=== PATIENT | female | born 1930 | race Caucasian/White ===

== ENCOUNTER 2016-12-21 05:34 | Day surgery (SDC) | payer MEDICARE, OTHER ==
--- NOTE | 2016-12-20 10:31 | NUR ---
FALL PATIENT REPORTS THAT SHE ROLLED OUT OF BED AND HIT HER BED STAND, STATES SHE MADE A MISTAKE AND ROLLED TOO FAR. HIT FACE ON NIGHT STAND.
[~2016-12-21] VITALS: Ht 160 cm; Wt 85.3 kg
[2016-12-21] VITALS (28 sets, daily range): BP systolic 121–190; BP diastolic 67–98; PULSE 70–92; RESP 12–20; TEMP 97.4–99.6; O2SAT 80–97; Ht 160 cm; Wt 85.3 kg
[~2016-12-21 05:34] MED LIST: ACET-2321 PO; ESCI10TA44 PO; TOLT4CAP PO
--- OUTSIDE RECORDS SUMMARY | 2016-12-21 05:39 | XMS REPORT | Continuity of Care Document ---
Author Author [facility] Organization [facility] Address Unknown Phone Unavailable Support Name Relationship Address Phone YARA RAMÍREZ MD Caregiver [address] [place] [address] Unavailable YARA RAMÍREZ MD Caregiver [address] [place] [address] Unavailable STACIE HOUGH MD Caregiver [address] [place] [address] [place] [address] Unavailable JIM ORTIZ MD Caregiver [address] [place] [address] Unavailable PIETROCRISTOPHER DIASCHING Gore Next Of Kin [address] [place] [address] Insurance Providers Guarantor PietroMarsha L Address [address] [place] [address] Email DENIED/NO TO PT PORT Payer [facility] [place] Medicare [facility] Policy Number [id number] Subscriber's Name Benja Westbrook Relationship 01 Spouse Effective Date 01 Payer Medicare Policy Number [id number] Subscriber's Name Marsha Westbrook Relationship 18 Self Effective Date 97 Advance Directives Directive Response Recorded Date/Time Advanced Directives Type None 06/27/16 9:05am Ordered Resuscitation Status Full Code 06/27/16 1:05pm Resuscitation Documents on File No 06/27/16 1:13pm DPOA for Healthcare Only Y BENJA WESTBROOK, 06/27/16 1:13pm Living Will Yes 06/27/16 1:13pm Chief Complaint and Reason for Visit Chief Complaint PANCREATITIS Reason for Visit Peptic ulcer disease Transaminitis Problems Active Problems Medical Problem Onset Date Status Anemia Unknown Back pain Unknown Acute Constipation by delayed colonic transit Unknown Acute Dental infection Unknown Acute Depression Unknown Chronic Hyperbilirubinemia Unknown Acute Hyperlipidemia Unknown Chronic Hypokalemia Unknown Acute Incontinence of urine Unknown Chronic Migraine with visual aura Unknown Obesity Unknown Chronic Peptic ulcer disease Unknown Chronic Transaminitis Unknown Acute UTI (urinary tract infection) Unknown Chronic Vertigo Unknown Surgical Problem Onset Date Status H/O hand surgery Unknown History of appendectomy Unknown Status post hip replacement Unknown Past Problems Medical Problem Onset Date Headache Unknown Pancreatitis Unknown Vertigo Unknown Medications Current Home Medications Medication Dose Units Route Directions Days Qty Instructions Start Date Escitalopram Oxalate (Lexapro) 10 Mg Tablet 10 Mg Oral Daily 20/07 Meclizine Hcl 25 Mg Tablet 25-50 Mg Oral Four Times Daily as needed for Dizziness 06/27/16 Omeprazole 20 Mg Capsule.dr 20 Mg Oral Before Breakfast 30 Days 30 Capsule 06/30/16 Polyvinyl Alcohol/Povidone/Pf (Refresh Classic Eye Drops) 1 Each Droperette 1 Drop Both Eyes Daily as needed for Dry Eyes 06/27/16 Tolterodine Tartrate (Detrol La) 4 Mg Cap.er.24h 4 Mg Oral Daily 06/27/16 Past Home Medications Medication Directions Ordered Status Acetaminophen 500 Mg Tablet, 500 Mg Oral Every 4 Hours as needed for Pain 05/11 Discontinued Tolterodine Tartrate (Detrol) 1 Mg Tablet, 1 Mg Oral Daily 02/04/09 Discontinued Social History Social History Problem Response Recorded Date/Time Onset Date Status Reason for Hospitalization pancreatitis, transaminitis 06/30/2016 12:04pm Not Applicable Not Applicable Chewing Tobacco Status No 06/27/2016 10:00am Not Applicable Not Applicable Hx Substance Use No 06/27/2016 10:00am Not Applicable Not Applicable Hx Alcohol Use No 06/27/2016 10:00am Not Applicable Not Applicable Has the pt used tobacco in the last 12 months No 06/27/2016 1:17pm Not Applicable Not Applicable Tobacco Usage none 07/02/2015 6:53pm Not Applicable Not Applicable Query Response Start Date Stop Date Smoking Status Former smoker Hospital Discharge Instructions Instructions: Care Instructions: I was in the hospital because (patient own words): HAVING PAIN IN MY UPPER RIGHT ABDOMEN Discharge Diet: bland diet Discharge Activity: Normal activity as tolerated Follow Up Appointments: Follow-up appointment with Dr. Harvey- 07/14/16 at 2 p.m. Pending Lab / Results: No Pending Lab Patient Instructions: Continue with Prilosec 20 milligrams daily No other new home medications at time of discharge Follow-up with Dr. Harvey as scheduled. If symptoms return or worsen, contact Dr. Harvey, sooner Maintain a bland diet. Wound/Incision Care: N/A Durable Medical Equipment: None Pain Management/Treatment: none Expected Signs/Symptoms: Overall symptoms should continue to improve Notify Physician If: Severe abdominal pain, nausea, fevers, worsening symptoms During Business Hours:: Please call the physician's office at [phone] After Business Hours:: Please call [phone] and have the grid casting machine operator helper page the physician. Condition at time of discharge: Good Plan of Care Discharge Date 06/30/16 12:41pm Disposition 01 DISCHARGED HOME, SELF-CARE Instructions/Education Provided DI for Pancreatitis Prescriptions See Medication Section Care Plan and Goals See Discharge Instructions Section Functional Status Query Response Date Recorded Mobility Status Ambulatory June 30, 2016 12:04pm Assistive Devices None June 30, 2016 12:04pm Activity Limitations Pain June 30, 2016 12:04pm Feeding Ability Independent June 30, 2016 12:04pm Toileting Ability Independent June 30, 2016 12:04pm Grooming Ability Independent June 30, 2016 12:04pm Dressing Ability Independent June 30, 2016 12:04pm Driving Ability Independent June 30, 2016 12:04pm Housework Ability Independent June 30, 2016 12:04pm Meal Preparation Ability Independent June 30, 2016 12:04pm Stair Climbing Ability Independent June 30, 2016 12:04pm Ability to complete ADL's impeded by No change June 30, 2016 12:04pm Cognitive/Perceptual Impairments Impaired vision June 30, 2016 12:04pm Visual Assistive Devices Glasses With patient June 27, 2016 1:25pm Preferred Method of Learning Demonstration Hands on June 27, 2016 1:25pm Allergies, Adverse Reactions, Alerts Allergen Type Severity Reaction Status Last Updated Sulfa (Sulfonamide Antibiotics) Allergy Intermediate RASH Active 06/27/16 [id number] Reductase Inhibitor Adverse Reaction Intermediate PAINS IN LEGS Active 04/02/16 Niacin Allergy Intermediate RASH Active 04/02/16 Ibuprofen Adverse Reaction Intermediate SEVERE STOMACH PAINS Active Tetracycline Adverse Reaction Mild VAG INFECTIONS Active 06/27/16 Erythromycin base Allergy Unknown Active 04/02/16 Immunizations Immunization Event Date Type Not Given Reason Dose Number Lot Number Collection Coordinator VIS Given Influenza, high dose seasonal 06/28/16 Administered 1 [id number] Sanofi Pasteur 05/02/15 Pneumococcal conjugate PCV 13 06/29/16 Administered 1 [id number] Pfizer Query Response on File Recorded Date/Time Hx Influenza Vaccination N fall 201406/27/16 1:17pm Hx Pneumococcal Vaccination Y 2006 06/27/16 1:17pm Hx Influenza Vaccination N fall 201406/27/16 1:17pm Hx Tetanus Diptheria Y REPORTS CURRENT 07/01/15 11:07am Influenza Vaccine Hx 06-28-16 06/28/16 12:39pm Vital Signs Acute Vital Signs Vital Response Date/Time Temperature (Fahrenheit) 96.7 deg F (96.8 - 99.1) 06/30/2016 12:04pm Temperature (Calculated Celsius) 35.18448 degrees C (36.0 - 37.3) 06/30/2016 12:04pm Pulse Rate (adult) 92 bpm (60 - 100) 06/30/2016 12:04pm Respiratory Rate 18 breaths/min (10 - 20) 06/30/2016 12:04pm O2 Sat by Pulse Oximetry 94 % (90 - 100) 06/30/2016 12:04pm Oxygen Delivery Method Room Air 06/29/2016 7:45pm Oxygen Delivery Method Room Air 06/30/2016 12:04pm Oxygen Flow Rate 0.50 L/min 06/28/2016 8:31am Blood Pressure 144/91 mm Hg 06/30/2016 12:04pm Blood Pressure Source Automatic Cuff 06/30/2016 12:04pm Height (Feet) 5 feet 06/29/2016 5:42pm Height (Inches) 3.00 inches 06/29/2016 5:42pm Weight (Kilograms) 87.700 kg 06/30/2016 8:00am Body Mass Index (BMI) 33.0 06/27/2016 1:08pm Results Laboratory Results Test Name Result Units Flags Reference Collection Date/Time Result Date/ Time Comments White Blood Count 5.9 T/MM3 4.5-11.0 06/30/2016 4:12am 06/30/2016 5: 18am Red Blood Count 3.69 M/MM3 L 4.00-5.20 06/30/2016 4:12am 06/30/2016 5: 18am Hemoglobin 10.6 GM/DL L 12-16 06/30/2016 4:12am 06/30/2016 5:18am Hematocrit 33.5 % L 36-46 06/30/2016 4:12am 06/30/2016 5:18am Mean Corpuscular Volume 90.8 UM3 80-100 06/30/2016 4:1206/30/2016 5: 18am Mean Corpuscular Hemoglobin 28.7 UUG 26-34 06/30/2016 4:122015 5:18am Mean Corpuscular Hemoglobin Concent 31.6 GM/DL 31-37 06/30/2016 4:1206/30/2016 5:18am RDW Standard Deviation 44.0 FL 36.9-50.2 06/30/2016 4:1206/30/2016 5 :18am Platelet Count 180 T/MM3 130-400 06/30/2016 4:1206/30/2016 5:18am Mean Platelet Volume 11.0 UM3 9.4-12.4 06/30/2016 4:1206/30/2016 5: 18am Neutrophils (%) (Auto) 66.0 % 33-66 06/30/2016 4:06/30/2016 5: 18am Lymphocytes (%) (Auto) 19.9 % L 23-45 06/30/2016 4:1206/30/2016 5: 18am Monocytes (%) (Auto) 9.7 % H 0-9.0 06/30/2016 4:1206/30/2016 5:18am Eosinophils (%) (Auto) 3.9 % 0-4 06/30/2016 4:1206/30/2016 5:18am Basophils (%) (Auto) 0.3 % 0-2 06/30/2016 4:1206/30/2016 5:18am Immature Granulocyte % (Auto) 0.2 % 0.0-0.5 06/30/2016 4:122015 5:18am Absolute Neutrophils (auto) 3.9 T/MM3 1.8-7.7 06/30/2016 4:122015 5:18am Absolute Lymphocytes (auto) 1.2 T/MM3 1-4.8 06/30/2016 4:122015 5:18am Absolute Monocytes (auto) 0.6 T/MM3 0-0.8 06/30/2016 4:1206/30/2016 5:18am Absolute Eosinophils (auto) 0.2 T/MM3 0-0.5 06/30/2016 4:122015 5:18am Absolute Basophils (auto) 0.0 T/MM3 0-0.2 06/30/2016 4:1206/30/2016 5:18am Absolute Immature Granulocyte (auto 0.01 T/MM3 0.00-0.03 06/30/2016 4: 12am 06/30/2016 5:18am Icterus Index < 2 0-7 06/30/2016 4:1206/30/2016 5:31am Chemistry Specimen Hemolysis < 15 0-25 06/30/2016 4:1206/30/2016 5 :31am 0-25: Specimen Exhibited No Hemolysis. Turbidity < 20 0-20 06/30/2016 4:1206/30/2016 5:31am Sodium Level 145 MEQ/L H 134-144 06/30/2016 4:1206/30/2016 5:31am Potassium Level 3.3 MEQ/L L 3.6-5 06/30/2016 4:1206/30/2016 5:31am Chloride Level 109 MEQ/L H 98-107 06/30/2016 4:1206/30/2016 5:31am Carbon Dioxide Level 26 MEQ/L 22-30 06/30/2016 4:1206/30/2016 5: 31am Anion Gap 10 MEQ/L 5-15 06/30/2016 4:12am 06/30/2016 5:31am Blood Urea Nitrogen 6.0 MG/DL L 7-17 06/30/2016 4:1206/30/2016 5: 31am Creatinine 0.7 MG/DL 0.7-1.2 06/30/2016 4:1206/30/2016 5:31am BUN/Creatinine Ratio 9 RATIO 6-26 06/30/2016 4:1206/30/2016 5:31am Glomerular Filtration Rate Calc 80 06/30/2016 4:1206/30/2016 5: 31am Glucose Level 103 MG/DL 65-110 06/30/2016 4:12am 06/30/2016 5:31am Calculated Osmolality 277 MOSM/KG 261-280 06/30/2016 4:1206/30/2016 5:31am Calcium Level 8.8 MG/DL 8.4-10.2 06/30/2016 4:12am 06/30/2016 5:31am Total Bilirubin 1.70 MG/DL H 0.20-1.30 06/30/2016 4:12am 06/30/2016 5: 31am Unconjugated Bilirubin 1.60 MG/DL H 0.00-1.10 06/28/2016 4:34am 2015 4:52pm Conjugated Bilirubin 0.50 MG/DL H 0.00-0.30 06/28/2016 4:34am 2015 4:52pm Alkaline Phosphatase 129 U/L H 38-126 06/30/2016 4:12am 06/30/2016 5: 31am Total Protein 6.0 G/DL L 6.3-8.2 06/30/2016 4:1206/30/2016 5:31am Albumin 3.4 G/DL L 3.5-5.0 06/30/2016 4:1206/30/2016 5:31am Globulin 2.6 G/DL 2.4-3.6 06/30/2016 4:1206/30/2016 5:31am Albumin/Globulin Ratio 1.3 RATIO 1.1-2.2 06/30/2016 4:12am 06/30/2016 5 :31am Aspartate Amino Transf (AST/SGOT) 67 U/L D H 14-36 06/30/2016 4:12am 01/2016 5:33am Alanine Aminotransferase (ALT/SGPT) 151 U/L H 9-52 06/30/2016 4:12am 01/2016 5:31am Cholesterol Level 182 MG/DL 132-199 06/28/2016 4:34am 06/29/2016 1: 57am Triglycerides Level 103 MG/DL 35-135 06/28/2016 4:34am 06/29/2016 1: 57am HDL Cholesterol Direct 44 MG/DL 40-60 06/28/2016 4:34am 06/29/2016 1: 57am LDL Cholesterol, Calculated 117.4 66-159 06/28/2016 4:34am 2015 1:57am VLDL Cholesterol 20.6 MG/DL 0-28 06/28/2016 4:34am 06/29/2016 1:57am Cholesterol/HDL Ratio 4.1 RATIO H 0-4.0 06/28/2016 4:34am 06/29/2016 1: 57am Lipase 114 U/L D 23-300 06/30/2016 4:12am 06/30/2016 5:33am Magnesium Level 1.9 MG/DL 1.6-2.3 06/28/2016 4:34am 06/28/2016 5:02am Urine Collection Type CLEANCATCH-MIDSTREAM 06/27/2016 10:09am 06/27 10:15am Urine Color YELLOW YELLOW 06/27/2016 10:09am 06/27/2016 10:15am Urine Turbidity SL CLOUDY CLEAR 06/27/2016 10:09am 06/27/2016 10: 15am Urine Specific [place] 1.015 1.015-1.025 06/27/2016 10:09am 2015 10:15am Urine pH 6.0 5.0-8.0 06/27/2016 10:09am 06/27/2016 10:15am Urine Leukocyte Esterase NEGATIVE NEGATIVE 06/27/2016 10:09am 2015 10:15am Urine Nitrite NEGATIVE NEGATIVE 06/27/2016 10:09am 06/27/2016 10: 15am Urine Protein NEGATIVE NEGATIVE 06/27/2016 10:09am 06/27/2016 10: 15am Urine Glucose (UA) NEGATIVE NEGATIVE 06/27/2016 10:09am 06/27/2016 10 :15am Urine Ketones NEGATIVE NEGATIVE 06/27/2016 10:09am 06/27/2016 10: 15am Urine Urobilinogen 1.0 EU/DL NORMAL 06/27/2016 10:09am 06/27/2016 10: 15am Urine Bilirubin 1+ A NEGATIVE 06/27/2016 10:09am 06/27/2016 10:15am Urine Blood TRACE-INTACT A NEGATIVE 06/27/2016 10:09am 06/27/2016 10: 15am Urinalysis Comment MICROSCOPIC NOT IND. 06/27/2016 10:09am 2015 10:15am Glucometer 124 mg/dL H 65-110 06/29/2016 4:50pm 06/29/2016 4:54pm Name: MARSHA WESTBROOK Unit #: [id number] : 1930 Sex: F Admit Date: 06/27/16 Loc / Svc: MED Discharge Date: DIAGNOSTIC IMAGING REPORT Report #: [id number] [facility] AMOR [place] Indication: ITS.REASON: pancreatitis, CT suggestive of GB involvement PROCEDURE: US GALLBLADDER: Encounter: Initial Comparison: None Technique: Grayscale and color Doppler sonographic imaging of the right upper quadrant of the abdomen was performed. Findings: Small hyperechoic region near the hepatic margin of the gallbladder which appeared to have represented a probable pericholecystic flash hemangioma. The liver texture appears somewhat heterogeneous but no focal mass otherwise apparent. No intrahepatic ductal dilatation. Alternatively, this focal hyperechoic pericholecystic region of about 1.5 cm could represent an area of focal gallbladder wall thickening. The remainder of the wall itself is thickened diffusely measuring 3.9 mm. No gallstones or sludge apparent. No tenderness with transducer pressure. Both the intra and extrahepatic biliary system are of normal caliber with the common duct measuring 4.3 mm in dimension. Visualized portions of the head and body of the pancreas are unremarkable. The right kidney is present without collecting system dilatation. The right kidney measures 10.0 cm in length. Impression: 1. Hyperechoic pericholecystic apparent hepatic lesion which appears to be a portion of the hepatic parenchyma and would be consistent with a flash hemangioma when viewed in light of CT findings. Focal gallbladder wall thickening extending to the hepatic parenchyma would seem less likely. 2. Diffuse gallbladder wall thickening. No pericholecystic fluid 3. No gallstones or biliary duct dilatation. 4. Negative for ascites. . Procedures Procedure Status Date Provider(s) ROUTINE VENIPUNCTURE Completed 04/02/16 CT HEAD/BRAIN W/O DYE Completed 04/02/16 CT NECK SPINE W/O DYE Completed 04/02/16 METABOLIC PANEL TOTAL CA Completed 04/02/16 URINALYSIS AUTO W/O SCOPE Completed 04/02/16 COMPLETE CBC W/AUTO DIFF WBC Completed 04/02/16 ELECTROCARDIOGRAM TRACING Completed 04/02/16 HYDRATE IV INFUSION ADD-ON Completed 04/02/16 THER/PROPH/DIAG INJ IV PUSH Completed 04/02/16 EMERGENCY DEPT VISIT Completed 04/02/16 [id number] ITEM OR SERVICE Completed 04/02/16 610118"INJECTION, KETOROLAC TROMETHAMINE, PER 15 MG" Completed 04/02/16 218485"INFUSION, NORMAL SALINE SOLUTION , 1000 CC" Completed 04/02/16 Encounters Encounter Location Arrival/Admit Date Discharge/Depart Date Attending Provider Discharged Inpatient [facility] 06/27/16 11:45am 06/30/16 12: 41pm YARA RAMÍREZ MD Departed Emergency Room [facility] 04/02/16 6:28pm 04/02/16 9: 50pm JEREMÍAS HARRINGTON MD Recent Diagnosis Peptic ulcer disease Transaminitis
--- OUTSIDE RECORDS SUMMARY | 2016-12-21 05:39 | XMS REPORT | Continuity of Care Document ---
Author Author [facility] Organization [facility] Address Unknown Phone Unavailable Support Name Relationship Address Phone JEREMÍAS HARRINGTON MD Caregiver [facility] [address] [place] [address] Unavailable JIM ORTIZ MD Caregiver [facility] [address] [place] [address] BENJA CONDON Next Of Kin [address] [place] [address] Insurance Providers Payer Name Policy Number Subscriber Name Relationship Medicare [id number] Marsha Condon 20 Self Medicare Supp Wps [id number] Benja Condon 01 Spouse Advance Directives Directive Response Recorded Date/Time Advanced Directives Type None 06/07/14 2:20am Problems Medical Problems Problem Onset Date Status Dental infection Unknown Active Vertigo Unknown Active Medications Medication Dose Route Sig Days/Qty Instructions Order Date Discontinued Date Status Tolterodine Tartrate 1 Mg PO DAILY 02/04/09 05/04/10 Discontinued Escitalopram Oxalate 10 Mg PO BEDTIME 05/20/10 Active Tolterodine Tartrate Unknown Dose 06/07/14 Active Meclizine HCl 50 Mg PO FOUR TIMES DAILY PRN DIZZINESS 30 Qty 06/07/14 Active Ondansetron 4 Mg PO Q6H/0300,0900,1500,2100 For NAUSEA &/OR VOMITING 10 Qty Oral disintegrating tablet 06/07/14 Active Social History Social History Problem Response Recorded Date/Time Smoking Status Former smoker 06/07/2014 2:20am When did patient START smoking? AGE 20 06/07/2014 2:20am When did patient STOP smoking? AGE 22 06/07/2014 2:20am Hx Substance Use No 06/07/2014 2:20am Hx Alcohol Use No 06/07/2014 2:20am Hospital Discharge Instructions No hospital discharge instructions. Plan of Care No plan of care. Functional Status Query Response Date Recorded Physical Hygiene Self June 07, 2014 2:20am Disabilities None June 07, 2014 2:20am Devices Used None June 07, 2014 2:20am Dressing Self June 07, 2014 2:20am Ambulation Self June 07, 2014 2:20am Diet Self June 07, 2014 2:20am Mental Status Alert June 07, 2014 4:10am Disabilities None June 07, 2014 2:20am Devices Used None June 07, 2014 2:20am Physical Hygiene Self June 07, 2014 2:20am Dressing Self June 07, 2014 2:20am Ambulation Self June 07, 2014 2:20am Diet Self June 07, 2014 2:20am Allergies, Adverse Reactions, Alerts Allergen Type Severity Reaction Status Last Updated Sulfa (Sulfonamide Antibiotics) Allergy Intermediate RASH Active 02/22/09 Ykniwop-Ish-Wkp Reductase Inhibitor Adverse Reaction Intermediate PAINS IN LEGS Active 05/04/10 Niacin Allergy Intermediate RASH Active 05/04/10 Ibuprofen Adverse Reaction Intermediate SEVERE STOMACH PAINS Active Tetracycline Adverse Reaction Mild VAG INFECTIONS Active 05/04/10 Erythromycin base Allergy Unknown Active 02/22/09 Immunizations Name Given Type Hx Influenza Vaccination Y FALL 2012 Historical Hx Pneumococcal Vaccination Y 2005 Historical Hx Influenza Vaccination Y FALL 2012 Historical Hx Tetanus Diptheria Y REPORTS CURRENT Historical Vital Signs Acute Vital Signs Vital Response Date/Time Temperature (Fahrenheit) 96.7 deg F (96.8 - 99.1) Temperature (Calculated Celsius) 35.56812 degrees C (36.0 - 37.3) Pulse Rate (adult) 78 bpm (60 - 100) Respiratory Rate 24 breaths/min (10 - 20) O2 Sat by Pulse Oximetry 96 % (90 - 100) Blood Pressure 168/71 mm Hg Results Test Source Date Result Interp. Ref. Range Comments Alanine Aminotransferase (ALT/SGPT) June 07, 2014 3:00am 24 U/L N 9 -52 Albumin June 07, 2014 3:00am 4.4 G/DL N 3.5-5.0 Albumin/Globulin Ratio June 07, 2014 3:00am 1.8 RATIO N 1.1-2.2 Alkaline Phosphatase June 07, 2014 3:00am 72 U/L N 38-126 Anion Gap June 07, 2014 3:00am 13 MEQ/L N 5-15 Aspartate Amino Transf (AST/SGOT) June 07, 2014 3:00am 17 U/L N 14- 36 BUN/Creatinine Ratio June 07, 2014 3:00am 18 RATIO N 6-26 Basophils # (Auto) June 07, 2014 3:00am 0.1 T/MM3 N 0-0.2 Basophils (%) (Auto) June 07, 2014 3:00am 0.9 % N 0-2 Blood Urea Nitrogen June 07, 2014 3:00am 14.0 MG/DL N 7-17 Calcium Level June 07, 2014 3:00am 9.6 MG/DL N 8.4-10.2 Calculated Osmolality June 07, 2014 3:00am 275 MOSM/KG N 261-280 Carbon Dioxide Level June 07, 2014 3:00am 26 MEQ/L N 22-30 Chloride Level June 07, 2014 3:00am 103 MEQ/L N 98-107 Creatinine June 07, 2014 3:00am 0.8 MG/DL N 0.7-1.2 Eosinophils # (Auto) June 07, 2014 3:00am 0.1 T/MM3 N 0-0.5 Eosinophils (%) (Auto) June 07, 2014 3:00am 2.4 % N 0-4 Globulin June 07, 2014 3:00am 2.5 G/DL N 2.4-3.6 Glucose Level June 07, 2014 3:00am 118 MG/DL H 65-110 Hematocrit June 07, 2014 3:00am 40.0 % N 36-46 Hemoglobin June 07, 2014 3:00am 13.0 GM/DL N 12-16 Lymphocytes # (Auto) June 07, 2014 3:00am 1.4 T/MM3 N 1-4.8 Lymphocytes (%) (Auto) June 07, 2014 3:00am 23.5 % N 23-45 Mean Corpuscular Hemoglobin June 07, 2014 3:00am 28.4 UUG N 26-34 Mean Corpuscular Hemoglobin Concent June 07, 2014 3:00am 32.5 GM/DL N 31-37 Mean Corpuscular Volume June 07, 2014 3:00am 87.3 UM3 N 80-100 Mean Platelet Volume June 07, 2014 3:00am 10.0 UM3 N 9.4-12.4 Monocytes # (Auto) June 07, 2014 3:00am 0.6 T/MM3 N 0-0.8 Monocytes (%) (Auto) June 07, 2014 3:00am 10.2 % H 0-9.0 Neutrophils # (Auto) June 07, 2014 3:00am 3.7 T/MM3 N 1.8-7.7 Neutrophils (%) (Auto) June 07, 2014 3:00am 62.8 % N 33-66 Platelet Count June 07, 2014 3:00am 253 T/MM3 N 130-400 Potassium Level June 07, 2014 3:00am 3.8 MEQ/L N 3.6-5 RDW Standard Deviation June 07, 2014 3:00am 43.2 FL N 36.9-50.2 Red Blood Count June 07, 2014 3:00am 4.58 M/MM3 N 4.00-5.20 Sodium Level June 07, 2014 3:00am 142 MEQ/L N 134-144 Total Bilirubin June 07, 2014 3:00am 0.50 MG/DL N 0.20-1.30 Total Protein June 07, 2014 3:00am 6.9 G/DL N 6.3-8.2 Troponin I June 07, 2014 3:00am < 0.012 ng/ml 0-0.12 Urine Bilirubin June 07, 2014 3:50am Negative - Has specimen been collected/obtained? Y Urine Blood June 07, 2014 3:50am Trace-lysed H - Has specimen been collected/obtained? Y Urine Collection Type June 07, 2014 3:50am Cleancatch-midstream - Has specimen been collected/obtained? Y Urine Color June 07, 2014 3:50am Yellow - Has specimen been collected/obtained? Y Urine Glucose (UA) June 07, 2014 3:50am Negative - Has specimen been collected/obtained? Y Urine Ketones June 07, 2014 3:50am Negative - Has specimen been collected/obtained? Y Urine Leukocyte Esterase June 07, 2014 3:50am Trace H - Has specimen been collected/obtained? Y Urine Nitrite June 07, 2014 3:50am Negative - Has specimen been collected/obtained? Y Urine Protein June 07, 2014 3:50am Negative - Has specimen been collected/obtained? Y Urine Specific [place] June 07, 2014 3:50am 1.015 - Has specimen been collected/obtained? Y Urine Turbidity June 07, 2014 3:50am Clear - Has specimen been collected/obtained? Y Urine Urobilinogen June 07, 2014 3:50am 0.2 EU/DL - Has specimen been collected/obtained? Y Urine pH June 07, 2014 3:50am 7.0 - Has specimen been collected/ obtained? Y White Blood Count June 07, 2014 3:00am 5.9 T/MM3 N 4.5-11.0 Chemistry Specimen Hemolysis June 07, 2014 3:00am < 15 0-25 0-25 : No Hemolysis.26-70: Slight Hemolysis - can falsely elevate K and Urine Protein. 71-285: Moderate Hemolysis - can falsely elevate K, Troponin I, CA 19-9, PTH, CSF GLucose, and Urine Protein, and can falsely decrease Phenytoin. 286-999: Gross Hemolysis - can falsely elevate K, Troponin I, CA 19-9, PTH, CSF Glucose, and Urine Protine, and can falsely decrease Phenytoin. Recommend specimen recollection. Urinalysis Comment June 07, 2014 3:50am Microscopic not ind. - Has specimen been collected/obtained? Y Lab Scanned Report February 05, 2013 1:43pm LAB TEST FORM REQUEST [id number] - Methicillin-Resist S.aureus DNA PCR April 06, 2010 8:48am Negative - Turbidity June 07, 2014 3:00am < 20 0-20 Glomerular Filtration Rate Calc June 07, 2014 3:00am 69 - Immature Granulocyte # (Auto) June 07, 2014 3:00am 0.01 T/MM3 N 0.00-0.03 Immature Granulocyte % (Auto) June 07, 2014 3:00am 0.2 % N 0.0-0.5 Icterus Index June 07, 2014 3:00am < 2 0-7 MRSA Specimen Source April 06, 2010 8:48am Nasal - Urine Microscopic Not Indicated May 05, 2010 6:15am Not indicated - COMMENT C&S IF WBC >10 AND BACTERIA 1+ OR MORE; TO SCU AT 0600 Has specimen been collected/obtained? Y Gram Stain Hip, Intraoperative Site-Left May 05, 2010 8:15am Procedures No known history of procedures. Encounters Encounter Location Date/Time Departed Emergency Room [facility] 06/07/14 2:11am Recent Diagnosis
[2016-12-21 06:26] LABS: BASOPHILS % (AUTO) 0.5 % (0-2); EOSINOPHILS # (AUTO) 0.2 T/MM3 (0-0.5); EOSINOPHILS % (AUTO) 2.3 % (0-4); HCT - HEMATOCRIT 41.1 % (36-46); HGB - HEMOGLOBIN 13.5 GM/DL (12-16); IMMATURE GRANULOCYTE # (AUTO) 0.01 T/MM3 (0.00-0.03); IMMATURE GRANULOCYTE % (AUTO) 0.1 % (0.0-0.5); LYMPHOCYTES # (AUTO) 2.2 T/MM3 (1-4.8); LYMPHOCYTES % (AUTO) 29.7 % (23-45); MEAN CORPUSCULAR HGB 29.4 UUG (26-34); MEAN CORPUSCULAR HGB CONC(MCHC 32.8 GM/DL (31-37); MEAN CORPUSCULAR VOLUME 89.5 UM3 (80-100); MEAN PLATELET VOLUME 10.1 UM3 (9.4-12.4); MONOCYTES # (AUTO) 0.6 T/MM3 (0-0.8); MONOCYTES % (AUTO) 8.6 % (0-9.0); NEUTROPHILS #(AUTO)-ABSOLUTE 4.3 T/MM3 (1.8-7.7); NEUTROPHILS % (AUTO) 58.8 % (33-66); RED BLOOD COUNT 4.59 M/MM3 (4.00-5.20); WBC - WHITE BLOOD COUNT 7.3 T/MM3 (4.5-11.0)
[2016-12-21 06:33] LABS: ANION GAP 12 MEQ/L (5-15); BUN/CREATININE RATIO 18 RATIO (6-26); CALCIUM 9.5 MG/DL (8.4-10.2); CHLORIDE 104 MEQ/L (98-107); CO2 - CARBON DIOXIDE 28 MEQ/L (22-30); CREATININE 0.8 MG/DL (0.7-1.2); GLOMERULAR FILTRATION RATE 68; GLUCOSE 109 MG/DL (65-110); POTASSIUM 3.8 MEQ/L (3.6-5); SODIUM 144 MEQ/L (134-144)
--- NOTE | 2016-12-21 06:44 | ANESPREOP ---
Anesthesia Record Date and Time DATE: 12/21/16 TIME: 06:35 Proposed Surgical Procedure ROBOTIC LAP GERARD NPO since: 2300 12/20/16 Allergies: Coded Allergies: Sulfa (Sulfonamide Antibiotics) (Verified Allergy, Intermediate, RASH, 06/27/16) niacin (Verified Allergy, Intermediate, RASH, 04/02/16) erythromycin base (Verified Allergy, Unknown, 04/02/16) Fnqrvaw-Aah-Hzr Reductase Inhibitor (Verified Adverse Reaction, Intermediate, PAINS IN LEGS, 04/02/16) ibuprofen (Verified Adverse Reaction, Intermediate, SEVERE STOMACH PAINS, 04/02/16) tetracycline (Verified Adverse Reaction, Mild, VAG INFECTIONS, 06/27/16) Ht/Wt/BMI Height: 5 ' 3.00 " Weight: 83.300 kg BMI: 32.5 kg/m2 Vital Signs Date Time Temp Pulse Resp B/P Pulse Ox O2 Delivery O2 Flow Rate FiO2 12/21/16 05:57 98.3 80 14 190/98 96 Room Air Medications Inpatient Medications Current Medications Medications (Trade) Dose Ordered Sig/Joe Start Time Stop Time Status Last Admin Dose Admin Lactated Ringer's (Lactated Ringers) 1,000 ml @ 50 mls/hr Q20H PRN 12/21/16 07:00 12/21/16 06:33 50 MLS/HR Acetaminophen (Tylenol) 325 Mg Tablet, 1-2 TAB PO QID, (Reported) Last Taken: on 12/20/16 Escitalopram Oxalate (Lexapro) 10 Mg Tablet, 10 MG PO DAILY, (Reported) Last Taken: on 12/20/16 Tolterodine Tartrate (Detrol LA) 4 Mg Cap.er.24h, 4 MG PO DAILY, (Reported) Last Taken: on 12/20/16 Currently on Beta Dion: No Medical/Surgical History Anesthesia PMH: Reports: CVA/Stroke/TIA (TIA), Obesity, Other (OCCULAR MIGRAINES), Reflux (OCC), Sleep Apnea (DOING TESTING - NO CPAP AT THIS TIME) Smoking Status: Former smoker (QUIT ABOUT 60YR AGO PER PT) Has pt. smoked today?: No Substance Use Type: does not use Alcohol Intake: rarely (Q6MO) Past Surgical History Orthopedic Surgeries: Yes - L HIP REPLACEMENT ,RT HAND/WRIST REPAIR Abdominal Surgeries: Yes - RUPTURED APPY; ABD FISTULA,LAPAROTOMY PER H&P Genitourinary Surgeries: No Cardiac Surgeries: No Endocrine Surgeries: No Reproductive Surgeries: Yes - D&C; BARTHOLIN CYST; OVARIAN CYST Neurological Surgeries: No Ear Surgeries: No Nose Surgeries: No Throat Surgeries: Yes - T&A Other Surgeries: Yes - BILAT CATARACTS PER H&P Anesthesia Adverse Reactions: FOUND nausea and vomiting, FOUND other ("SLOW TO WAKE") Family Hx of Anesthesia Advers: none Hx of Motion Sickness: Yes Pertinent Findings Laboratory Tests 12/21/16 06:03 Physical Exam Respiratory: Lungs clear Cardiovascular: FOUND No murmur Airway Assessment Mallampati Score: III TMD: 3 Fingerbreadths Neck Extension: Poor Teeth: Chipped Teeth/Crowns Overall Assessment: May Be Diff Intubation ASA: 2 Plan Anesthesia Plan: GETA Discussion Discussed risks/options/alternatives of anesthesia and questions answered. Patient consents. Nursing pain assessment noted. Present: Spouse Attestation Statement Prior to the delivery of any anesthetic medication, I examined the patient, developed the plan, obtained the patient's consent and discussed the risk and benefits of the procedure with the patient/guardian. SUSAN CABRERA CENTRIFUGE SEPARATOR OPERATOR STUDENT Dec 21, 2016 06:38
[2016-12-21] MEDS ORDERED: BUPIVACAINE 0.25% (2.5mg/ml) INJ 30ml SDV ONE (06:50)
[2016-12-21] MEDS ORDERED: SALINE FLUSH 10ml SYRINGE ONE (06:50)
[2016-12-21] MEDS ORDERED: LIDOCAINE 1% (10mg/ml) 2ml SDV INJ ONE (07:00)
[2016-12-21] MEDS ORDERED: LR 1,000 ML IV PRN (07:00)
[2016-12-21] MEDS ORDERED: GLYCOPYRROLATE 0.4mg/2ml INJECTION ONE (07:25)
[2016-12-21] MEDS ORDERED: PROPOFOL 200mg 20 ML IV ONE (07:25)
[2016-12-21] MEDS ORDERED: LIDOCAINE 2% (20mg/ml) 5ml PF SDV ONE (07:25)
[2016-12-21] MEDS ORDERED: ROCURONIUM 50mg/5ml INJECTION IV ONE ×2 (07:25→08:57)
[2016-12-21] MEDS ORDERED: ONDANSETRON 4mg/2ml INJECTION ONE (07:25)
[2016-12-21] MEDS ORDERED: FENTANYL 250mcg/5ml INJECTION ONE (07:25)
[2016-12-21] MEDS ORDERED: MIDAZOLAM 2mg/2ml INJECTION IV ONE (07:30)
[2016-12-21] MEDS ORDERED: DESFLURANE 240 ML LIQUID IH ONE (07:36)
[2016-12-21] MEDS ORDERED: LACRI-LUBE EYE OINT 3.5 G TUBE ONE (07:54)
[2016-12-21] MEDS ORDERED: CEFAZOLIN 1 GRAM INJECTION IV ONE (08:00)
[2016-12-21] MEDS ORDERED: HYDROMORPHONE 2mg/ml INJECTION IV PRN ×2 (08:30→11:00)
[2016-12-21] MEDS ORDERED: FENTANYL 100mcg/2ml INJECTION ONE (08:34)
[2016-12-21] MEDS ORDERED: LABETALOL 20mg/4ml INJECTION IV ONE (08:53)
[2016-12-21] MEDS ORDERED: SUGAMMADEX 200 MG/2 ML INJECTION IV ONE (09:50)
--- NOTE | 2016-12-21 10:12 | GSPOSTPROC ---
Immediate Operative Note DATE: 12/21/16 TIME: 10:10 Postop Diagnosis: Chronic cholecystitis Surgical Procedure: Other (Multiport robotic laparoscopic cholecystectomy) Surgeon: Candice ASA: 2 LOLI GILLIAM MD Dec 21, 2016 10:12
[2016-12-21] MEDS ORDERED: PROMETHAZINE 25 MG INJECTION IV PRN (10:15)
[2016-12-21] MEDS ORDERED: ONDANSETRON 4mg/2ml INJECTION IV PRN (10:15)
[2016-12-21] MEDS ORDERED: MORPHINE 10mg/ml vl INJECTION IV PRN (10:15)
[2016-12-21] MEDS ORDERED: ACETAMINOPHEN 500 MG TABLET PO PRN (10:15)
--- NOTE | 2016-12-21 11:24 | NUR ---
ADMIT PATIENT ADMITTED TO ROOM 107 AT THIS TIME. PATIENT WAS ABLE TO MOVE SELF FROM OR CART TO BED. PATIENT DENIES CP, NAUSEA, AND SOA. FAMILY AT BEDSIDE. WILL CONTINUE TO MONITOR.
[2016-12-21] MEDS: OXYCODONE I.R. 5 MG TABLET PO PRN ×4 (14:15→23:31)
--- NOTE | 2016-12-21 14:20 | ANESPO ---
Post-Op Note Date 12/21/16 Time: 14:18 Status Pt Participated in Evaluation: Pt participated in person Vital Signs Date Time Temp Pulse Resp B/P Pulse Ox O2 Delivery O2 Flow Rate FiO2 12/21/16 13:30 81 135/75 92 Nasal Cannula 2.00 12/21/16 11:30 98.4 18 Respiratory Function: Airway patent Mental Status: Alert/oriented Pain Level Intensity: 6 Hydration: Taking po fluids, IV infusing Complications during Recovery None apparent Follow-Up Instructions Instructions Per Surgeon RUDDY DUBON CRNA Dec 21, 2016 14:20
[2016-12-21] MEDS: LR 1,000 ML IV SCH (16:49)
--- NOTE | 2016-12-21 18:11 | NUR ---
SHIFT SUMMARY PATIENT IS ALERT AND ORIENTED X3. PATIENT VITALS ARE STABLE AND PATIENT IS ON 2L VIA NC. PATIENT DENIES CP, AND SOA. PATIENT HAS REQUIRED PRN PO PAIN MEDICATION X2 THIS SHIFT. PATIENT DRESSINGS ARE INTACT WITH ONE THAT HAS DRAINAGE CIRCLED. PATIENT HAS AMBULATED TO BATHROOM ONLY AT THIS TIME. FAMILY AT BEDSIDE. WILL CONTINUE TO MONITOR.
[2016-12-22] VITALS (8 sets, daily range): BP systolic 111–142; BP diastolic 58–74; PULSE 86–96; RESP 14–18; TEMP 97.7–98.6; O2SAT 92–98
--- NOTE | 2016-12-22 05:28 | NUR ---
SHIFT SUMMARY PT ALERT AND ORIENTED X3, VITAL SIGNS STABLE ON 3L02. DENIES C/P,N/V AND SOA. PT HAS AMBULATED ONCE AND UP TO THE BATHROOM WITH A ONE PERSON ASSIST. PAIN IS MANAGED WITH PO PRN PAIN MEDICATION(SEE EMAR). WILL CONTINUE TO MONITOR.
[2016-12-22] MEDS: LR 1,000 ML IV SCH ×2 (08:12→14:07)
--- NOTE | 2016-12-22 08:30 | NUR ---
Nausea Pt had some nausea at this time. This RN discussed nausea medication options with Pt. Pt refused nausea medication and stated "its starting to resolve on its own."
[2016-12-22] MEDS ORDERED: ESCITALOPRAM 10 MG TABLET PO SCH (09:00)
[2016-12-22] MEDS ORDERED: TOLTERODINE LA 4 MG CAPSULE PO SCH (09:00)
--- NOTE | 2016-12-22 11:23 | OPNOTEF ---
DATE OF OPERATION 12/21/2016 PREOPERATIVE DIAGNOSES 1. Right upper quadrant abdominal pain with radiation to the back suggestive of chronic cholecystitis. 2. Episode of acute idiopathic pancreatitis in June 2016. 3. Transient elevation of liver function tests in June 2016. 4. Abnormal appearance of gallbladder with a small polyp or adenomatous change at the gallbladder with possible sludge in the gallbladder demonstrated on 07/26/2016 gallbladder sonogram. POSTOPERATIVE DIAGNOSES 1. Right upper quadrant abdominal pain with radiation to the back suggestive of chronic cholecystitis. 2. Episode of acute idiopathic pancreatitis in June 2016. 3. Transient elevation of liver function tests in June 2016. 4. Abnormal appearance of gallbladder with a small polyp or adenomatous change at the gallbladder with possible sludge of the gallbladder demonstrated on 07/26/2016 gallbladder sonogram. 5. Intraabdominal adhesions. OPERATION Multiport robotic laparoscopic cholecystectomy with laparoscopic lysis of intraabdominal adhesions. SURGEON Lyndon Harvey MD ANESTHESIA General ASA CLASS 2 FINDINGS The gallbladder did appear to be chronically inflamed. There were quite a few adhesions to the outside surface of the gallbladder. The gallbladder appeared thickened. The patient did have a lot of adhesions in the right lower quadrant of the abdomen from her previous series of two complicated operations for treatment of acute appendicitis with perforation as a child. In addition to this, the patient had adhesions of the right upper quadrant of the abdomen which are presumed to be associated with these same two previous operations for complicated acute appendicitis with perforation. The patient had multiple adhesions of the anterior surface of the liver to the overlying anterior abdominal wall parietal peritoneum and to the diaphragm. The patient also had adhesions of the gallbladder to the anterior abdominal wall parietal peritoneum. There were adhesions of the greater omentum to the margin of the liver all along the liver. There were adhesions at the right subhepatic space. DESCRIPTION OF OPERATION The patient did have injectable indocyanine green dye administered intravenously preoperatively. The patient was placed in supine position on the operating table. General anesthesia was satisfactorily induced. The abdomen was prepped and draped in routine sterile fashion. Bupivacaine 0.25% without epinephrine was infiltrated into the skin and underlying tissue at the left subcostal area. A small incision was made at this area. A Veress needle was inserted in the peritoneal cavity through this incision at the left subcostal area along the left subcostal margin. Pneumoperitoneum was established with carbon dioxide. The Veress needle was removed. An 8-mm da Arelis stovepipe instrument port was inserted at this left subcostal incision. The da Arelis 8.5 mm camera was then inserted through this port. There was concern preoperatively that the patient might have adhesions to the anterior abdominal wall parietal peritoneum at the infraumbilical area which would make insertion of a port at this area dangerous. There was concern about possible injury to the bowel if there was bowel adherent to the anterior abdominal wall parietal peritoneum at the infraumbilical area because of adhesions from the previous operations for acute appendicitis with perforation. The decision was therefore made to place a left subcostal port and introduce a da Arelis camera through the left subcostal port to look at the infraumbilical area from within the peritoneal cavity to make sure that there were no adhesions in this area before introducing a port through this area. The patient did have adhesions of the right lower quadrant of the abdomen and the right upper quadrant of the abdomen as described above. Fortunately, there were no adhesions to the anterior abdominal wall parietal peritoneum in the vicinity of the umbilicus. Bupivacaine 0.25% without epinephrine was then infiltrated into the skin and underlying tissue at an infraumbilical incision site. An infraumbilical incision was made. A 12 mm camera port was placed at the infraumbilical incision. The 8.5 mm 30 degree da Arelis laparoscope was then removed from the left subcostal port and inserted at the infraumbilical camera port. The skin and underlying structures at the abdominal wall were infiltrated with bupivacaine at a port site at the left upper quadrant of the abdomen at the midclavicular line. An incision was made at this site and an 8 mm da Arelis instrument port was placed at this incision. The skin and underlying abdominal wall structures were infiltrated with bupivacaine at another incision site at the left side of the abdomen. An incision was made at this site and an [employer] urology physician assistant port was placed at this incision. The skin and underlying abdominal wall structures were infiltrated with bupivacaine at a port site at the right upper quadrant of the abdomen. An incision was made at this site and an 8 mm da Arelis instrument port was placed at this incision. The skin and underlying abdominal wall structures were infiltrated with bupivacaine at another port site at a more lateral location at the right side of the abdomen. An incision was made at this site and another 8 mm da Arelis instrument port was placed at this incision. The patient was placed in reverse Trendelenburg position. The right side of the table was tilted up. The da Arelis robotic system was brought up to the operating table. The da Arelis robotic system was docked to the camera port and the instrument ports. The da Arelis 12 mm 30 degree laparoscope was inserted at the camera port. The [place] bipolar forceps was inserted at the 8 mm instrument port at the left upper quadrant of the abdomen associated with instrument arm #1. A Cadiere forceps was inserted at the 8 mm instrument port at the right upper quadrant of the abdomen associated with instrument arm #2. A ProGrasp forceps was inserted at the 8 mm instrument port at the right lateral location at the abdomen associated with instrument arm #3. These instruments were all placed into a position adjacent to the gallbladder. The surgeon then went from the patient's side at the operating table to the surgeon console. The [place] bipolar forceps was then used to coagulate and divide adhesions binding the gallbladder to the anterior abdominal wall parietal peritoneum. Adhesions binding greater omentum to the anterior abdominal wall parietal peritoneum along the margin of the liver were divided. This did expose the gallbladder and the entire margin of the liver. Adhesions binding the anterior surface of the liver to the anterior abdominal wall parietal peritoneum and the right diaphragm were coagulated and divided with the [place] bipolar forceps. Adhesions binding greater omentum to the margin of the liver on right and left sides of the gallbladder were divided to free up the margin of the gallbladder so the gallbladder could later be reflected up superiorly towards the diaphragm. The adhesions at the subhepatic space were coagulated and divided with the [place] bipolar forceps. After all these adhesions were divided, the ProGrasp forceps with instrument arm #3 was used to grasp the fundus of the gallbladder and elevate the gallbladder and reflect the liver up superiorly towards the right diaphragm. Adhesions to the outside surface of the gallbladder was then divided from the fundus of the gallbladder down to the infundibulum of the gallbladder with the [place] bipolar forceps. These adhesions were coagulated and divided. The ?surface? of the gallbladder was dissected out from the fundus of the gallbladder all the way down to the infundibulum. The infundibulum of the gallbladder was then grasped with Cadiere forceps with instrument arm #2. Dissection was then performed at the hepatocystic triangle. The cystic artery was dissected out and identified. The cystic duct was dissected out and identified. The cystic duct and some of the common duct were able to be demonstrated with Firefly fluorescence imaging at this time. The cystic duct was well demonstrated with the Firefly fluorescence imaging. Dissection continued at the hepatocystic triangle until the only two structures remaining were the cystic duct and the cystic artery. A critical view of safety was achieved at this time. The hepatocystic triangle was cleared of all fatty and fibrous tissue until the only two structures remaining were the cystic duct and cystic artery. Three of the Hem-o-Donaldo clips were then applied to the cystic duct at the junction of the cystic duct and the gallbladder. The cystic duct was divided between the Hem-o-Donaldo clips with the curved dissecting scissors. Two of the Hem-o-Donaldo clips were left in place on the cystic duct stump. Two of the Hem-o-Donaldo clips were applied to the cystic artery. The cystic artery was divided between the Hem-o-Donaldo clips with the monopolar curved scissors. The monopolar curved scissors was then used to dissect the gallbladder out of the gallbladder bed. Tissue was coagulated with the monopolar curved scissors as the gallbladder was being dissected out the gallbladder bed to maintain hemostasis. The gallbladder was completely dissected out the gallbladder bed. Bleeding from the gallbladder bed was minimal during this time. Hemostasis was maintained during this time by coagulation of bleeding points at the gallbladder bed with the monopolar curved scissors. The gallbladder was placed in a position in the peritoneal cavity along the margin of the liver. The instruments were then removed from the instrument ports. The da Arelis laparoscope was removed from the camera port. The da Arelis robotic system was undocked from the ports. The surgeon left the surgeon console and returned back to the side of the patient at the operating table. The da Arelis 8.5 mm 30 degree laparoscope was inserted at one of the right side da Arelis instrument ports. The specimen retrieval pouch was inserted at the 12 mm camera port. The gallbladder was placed in the specimen retrieval pouch. The specimen retrieval pouch containing the gallbladder was brought out through infraumbilical incision. The gallbladder was submitted as a specimen for study by the pathologist. The instrument ports were all removed. Carbon dioxide was removed from peritoneal cavity by desufflation. The fascial layer of the infraumbilical incision was closed with a series of simple interrupted stitches using 0 Vicryl suture. The skin margins were then closed at all the incisions with subcuticular stitches using 4-0 Vicryl suture. Benzoin and 1/4-inch wide Steri-Strips were applied to the incisions. Band-Aids were applied to the incisions. The patient tolerated the operation well. The patient was transferred from the operating room to the recovery room in satisfactory condition. DELVIS
--- NOTE | 2016-12-22 14:36 | NUR ---
CM THIS WORKER MET WITH PT ON THIS DATE. PT IS SITTING IN CHAIR AT THIS TIME. THIS WORKER INTRODUCED SELF AND ROLE OF CASE MANAGEMENT. THIS WORKER REVIEWED NEEDS FOR DISCHARGE. PT REPORTED THAT SHE HAS A AT HOME AND A DAUGHTER THAT LIVES CLOSE BY. PT IS EAGER TO RETURN HOME ON THIS DATE. PT REPORTED THAT EITHER HER OR DAUGHTER WILL BE TRANSPORTING HER HOME. THIS WORKER INQUIRED REGARDING SIGNIFICANT BRUISING ON RIGHT SIDE OF HER FACE. PT REPORTED THAT SHE HAD "FALLEN OUT OF BED" ON TUESDAY. PT WAS GIVEN THIS WORKER'S CONTACT INFORMATION AND WAS ENCOURAGED TO CONTACT THIS WORKER WITH ANY NEEDS. PT WAS THANKFUL FOR THIS WORKER'S VISIT.
--- NOTE | 2016-12-22 17:04 | NUR ---
Discharge Pt discharged at this time via wheelchair through ER entrance in the company of an adult. IV catheter DC'd prior to discharge, catheter tip intact. VS stable on RA. Discharge packet and instructions gone over with Pt. This RN discussed activity, medications, diet, restrictions, and follow up appt with Pt. Pt verbalized understanding and had no further questions for this RN. Personal belongings sent with Pt.
--- NOTE | 2016-12-22 17:59 | PNF ---
DATE 12/22/2016 POSTOPERATIVE DAY #1 HISTORY The patient is doing well. She is tolerating her diet. She has no nausea or vomiting. She is ambulating as well now as she was preoperatively. She has minimal pain and has had good pain control with minimal use of oral analgesics. She is doing well overall. PHYSICAL EXAMINATION Vital signs: Temperature is 97.9 degrees oral. Pulse is 91. Respiratory rate is 14. Blood pressure is 142/74. Oxygen saturation is 98% on room air. ABDOMEN: The abdominal incisions all look good. No sign of any wound healing problems. IMPRESSION Doing well following multiport robotic laparoscopic cholecystectomy with laparoscopic lysis of intraabdominal adhesions on 12/21/2016. PLAN Dismiss patient from [facility] today. DISCHARGE MEDICATIONS 1. Resume medications which the patient was taking preoperatively. 2. The patient believes that she can have good pain control with use of Extra-Strength Tylenol or ibuprofen. YAMILED
== END 2016-12-22 17:04 | disposition home or self-care (01) ==
LOC: SRG 05:34 → SCU 05:34
PROVIDERS: ATTEND Surgery
DX: K81.2 Acute cholecystitis with chronic cholecystitis (principal); K82.8 Other specified diseases of gallbladder; E78.5 Hyperlipidemia, unspecified; F41.9 Anxiety disorder, unspecified; Z79.899 Other long term (current) drug therapy; Z87.891 Personal history of nicotine dependence
CPT/HCPCS: 36415; 47562; 80048; 82948; 85025; A9270; J0690; J1170; J2250; J2405; J2704; J3010; J7030; J7120; S2900

== ENCOUNTER → 2017-01-24 | Outpatient (CLI) | payer MEDICARE, OTHER | LOC: WC.BC 10:44 | DX: Z12.31 Encounter for screening mammogram for malignant neoplasm of breast (principal) | CPT/HCPCS: 77063; G0202 ==